=== PATIENT | male | born 1990 | race Two or more races ===

== ENCOUNTER 2017-10-06 17:37 | Emergency (ER) | payer MEDICAID ==
[~2017-10-06] VITALS: Ht 182.9 cm; Wt 70.0 kg
[2017-10-06 18:20] LABS: BASOPHILS % 0.6 % (0.0-2.0); EOSINOPHILS % 4.4 % (0.0-5.0); HEMATOCRIT. 39.2 % (42.0-52.0); HEMOGLOBIN. 13.7 g/dL (14.0-18.0); INR 1.2; LYMPHOCYTES % 57.7 % (20.0-50.0); MEAN CORPUSCULAR HEMOGLOBIN 29.4 pg (28.0-32.0); MEAN CORPUSCULAR VOLUME 84.2 fL (80.0-94.0); MEAN PLATELET VOLUME 7.9 fl (7.4-10.4); MONOCYTES % 8.1 % (2.0-8.0); NEUTROPHILS % 29.2 % (40.0-76.0); PLATELET 278 x1000/uL (130-400); PROTHROMBIN TIME 12.2 sec (9.4-11.6); RED BLOOD CELL COUNT 4.65 mill/uL (4.7-6.1); RED CELL DISTRIBUTION WIDTH 12.6 % (11.6-14.6)
[2017-10-06 18:29] LABS: CARBON DIOXIDE 24 mEq/L (21-32); CHLORIDE 104 mEq/L (98-107)
[2017-10-06 18:30] LABS: TROPONIN I < 0.02 ng/mL (0.00-0.04)
[2017-10-06 18:47] VITALS: BP 135/77
== END 2017-10-06 18:47 | disposition home or self-care (01) ==
LOC: ER 17:51
DX: R07.89 Other chest pain (principal); F10.10 Alcohol abuse, uncomplicated; F14.90 Cocaine use, unspecified, uncomplicated; Y90.9 Presence of alcohol in blood, level not specified; Z20.6 Contact with and (suspected) exposure to human immunodeficiency virus [HIV]
CPT/HCPCS: 36415; 71010; 80053; 84484; 85025; 85610; 93005; 99285